=== PATIENT | female | born 1950 | race Caucasian/White ===

== ENCOUNTER → 2018-02-23 | Outpatient (CLI) | payer MEDICARE | END | disposition home or self-care (01) | LOC: EDSTATUS 14:00 → CFH 14:05 | PROVIDERS: ATTEND Family Medicine | DX: Z13.820 Encounter for screening for osteoporosis (principal); M81.0 Age-related osteoporosis without current pathological fracture; N95.9 Unspecified menopausal and perimenopausal disorder | CPT/HCPCS: 77080 ==

== ENCOUNTER 2019-07-27 19:46 | Observation (INO) | payer MEDICARE ==
[~2019-07-27] VITALS: Ht 149.9 cm; Wt 94.8 kg
--- NOTE | 2019-07-27 20:00 | NUR ---
THIS IS A 69 YO F BIB EMS W/ C/O NEAR SYNCOPAL EPISODE. PT WAS STANDING IN KITCHEN WHEN SHE BECAME DIZZY. PT FAMILY REPORTS "IT LOOKED LIKE SHE WAS GOING TO PASS OUT". PT DENIES LOC. PT C/O INTERMITTENT PRODUCTIVE COUGHX2 DAYS. STATES SHE RECENTLY FINISHED ABX COURSE FOR SINUS INFT. 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 A&OX4. PT PLACED ON 2L NC TO MAINTAIN >90%, DOES NOT WEAR O2 AT HOME. OTHER VS WDL. PT RESTING ON [employer] W/ CALL LIGHT IN REACH. CONNECTED TO ALL MONITORING.
[2019-07-27] MEDS ORDERED: RISP1TAB45 PO (20:04)
[2019-07-27] MEDS ORDERED: TRAZ-175 PO (20:04)
[2019-07-27] MEDS ORDERED: LOSA25TA25 PO (20:04)
[2019-07-27] MEDS ORDERED: HYDR25TA6 PO (20:04)
[2019-07-27] MEDS ORDERED: VENL150C6 PO (20:04)
--- NOTE | 2019-07-27 20:04 | NUR ---
ANDREA- WAS EXPLAINED VISITOR POLICY DUE TO CURRENT PANDEMIC. ALTHOUGH UPSET HE AGREED TO LEAVE WITH HIS DAUGHTER. HE CAN BE CONTACTED AT [phone].
--- NOTE | 2019-07-27 20:08 | NUR ---
PT TO CT.
[2019-07-27 20:48] LABS: BASOPHILS # (AUTO) 0.02 x10^3/uL (0-0.1); BASOPHILS % (AUTO) 0 % (0-1); EOSINOPHILS # (AUTO) 0.09 x10^3/uL (0-0.4); EOSINOPHILS % (AUTO) 1 % (1-7); LYMPHOCYTES # (AUTO) 0.78 x10^3/uL (1-3.4); LYMPHOCYTES % (AUTO) 10 % (22-44); MD NO; MEAN CORPUSCULAR HEMOGLOBIN 28.9 pg (27.0-34.8); MEAN CORPUSCULAR HGB CONC 32.2 g/dL (32.4-35.8); MEAN CORPUSCULAR VOLUME 89.9 fL (80-100); MEAN PLATELET VOLUME 8.2 fL (7.4-10.4); MONOCYTES # (AUTO) 0.31 x10^3/uL (0.2-0.8); MONOCYTES % (AUTO) 4 % (2-9); NEUTROPHILS # (AUTO) 6.73 x10^3/uL (1.8-6.8); NEUTROPHILS % (AUTO) 85 % (42-75); PLATELET COUNT 264 x10^3/uL (130-400); RED BLOOD COUNT 4.53 x10^6/uL (3.82-5.3); RED CELL DISTRIBUTION WIDTH 13.9 % (9.6-15.2)
[2019-07-27 20:53] LABS: ALANINE AMINOTRANSFERASE 17 U/L (12-78); ALBUMIN 3.2 g/dL (3.4-5.0); ANION GAP 4 mmol/L (5-15); CALCIUM 8.2 mg/dL (8.5-10.1); CHLORIDE 108 mmol/L (98-107); CREATININE 1.59 mg/dL (0.55-1.02)
[2019-07-27 20:57] LABS: ALKALINE PHOSPHATASE 70 U/L (45-117); BILIRUBIN,TOTAL < 0.1 mg/dL (0.2-1.0); TOTAL PROTEIN 6.2 g/dL (6.4-8.2); TROPONIN I < 0.015 ng/mL (0.000-0.045)
[2019-07-27] MEDS ORDERED: methylPREDNISolone SOD SUCC 125 MG/2 ML IVPush STA (21:37)
--- NOTE | 2019-07-27 22:09 | NUR ---
MED DEVIKA FROM PHARMACY.
[2019-07-27] MEDS ORDERED: ONDANSETRON ODT 4 MG PO PRN (22:30)
[2019-07-27] MEDS ORDERED: POLYETHYLENE GLYCOL 17 GM PACKET PO PRN (22:30)
[2019-07-27] MEDS ORDERED: BISACODYL 10 MG SUPP PR PRN (22:30)
--- NOTE | 2019-07-27 23:02 | NUR ---
REPORT GIVEN TO DIETER DEGROOT. PT IS READY FOR TRANSFER.
[2019-07-27] MEDS: SODIUM CHLORIDE 0.9% 1,000 ML IV SCH (23:37)
[2019-07-27] MEDS: HEPARIN 5,000 UNITS/ML, 1ML SQ SCH (23:46)
[2019-07-27 23:47] VITALS: BP 146/73
[2019-07-28] VITALS (7 sets, daily range): BP systolic 113–144; BP diastolic 65–90
[2019-07-28] MEDS ORDERED: BUPR300T94 PO
[2019-07-28] MEDS ORDERED: FLU VACC QS2019-20 36MOS UP/PF 0.5 ML IM-VACC ONE (00:30)
[2019-07-28] MEDS ORDERED: TRAZODONE 50MG TABLET ONE (00:55)
[2019-07-28] MEDS: TRAZODONE 100MG TABLET PO SCH ×2 (01:05→20:33)
[2019-07-28] MEDS: VENLAFAXINE 75 MG CAP ER PO SCH ×2 (01:06→20:33)
[2019-07-28 02:59] LABS: MICROSCOPIC NOT IND
[2019-07-28 03:04] LABS: CULTURE INDICATED? NO
[2019-07-28 05:01] LABS: BASOPHILS # (AUTO) 0.01 x10^3/uL (0-0.1); BASOPHILS % (AUTO) 0 % (0-1); EOSINOPHILS % (AUTO) 0 % (1-7); LYMPHOCYTES # (AUTO) 0.53 x10^3/uL (1-3.4); LYMPHOCYTES % (AUTO) 7 % (22-44); MD NO; MEAN CORPUSCULAR HEMOGLOBIN 29.2 pg (27.0-34.8); MEAN CORPUSCULAR HGB CONC 32.6 g/dL (32.4-35.8); MEAN CORPUSCULAR VOLUME 89.6 fL (80-100); MEAN PLATELET VOLUME 8.3 fL (7.4-10.4); MONOCYTES # (AUTO) 0.04 x10^3/uL (0.2-0.8); MONOCYTES % (AUTO) 1 % (2-9); NEUTROPHILS # (AUTO) 6.96 x10^3/uL (1.8-6.8); NEUTROPHILS % (AUTO) 92 % (42-75); PLATELET COUNT 263 x10^3/uL (130-400); RED BLOOD COUNT 4.59 x10^6/uL (3.82-5.3); RED CELL DISTRIBUTION WIDTH 13.8 % (9.6-15.2)
[2019-07-28 05:09] LABS: ANION GAP 3 mmol/L (5-15); CALCIUM 8.6 mg/dL (8.5-10.1); CHLORIDE 110 mmol/L (98-107); CHOLESTEROL, TOTAL 213 mg/dL (140-239); CREATININE 1.21 mg/dL (0.55-1.02)
[2019-07-28 05:14] LABS: CHOL/HDL RATIO 3.7; HDL CHOL % 27 % (28-40); HDL CHOLESTEROL (DIRECT) 58 mg/dL (40-60); LDL CHOLESTEROL,CALCULATED 146 mg/dL (54-169); LDL/HDL RATIO 2.5 (0.5-3.0); TRIGLYCERIDES 46 mg/dL (50-200); TROPONIN I < 0.015 ng/mL (0.000-0.045); VLDL CHOLESTEROL 9 mg/dL (0-25)
[2019-07-28] MEDS: SENNA/DOCUSATE TABLET PO SCH (08:21)
[2019-07-28] MEDS: HEPARIN 5,000 UNITS/ML, 1ML SQ SCH ×2 (08:21→17:09)
[2019-07-28] MEDS: ASPIRIN 81 MG TABLET CHEW PO SCH (08:21)
[2019-07-28] MEDS: HYDROCHLOROTHIAZIDE 12.5 MG CAPSULE PO SCH (08:21)
[2019-07-28] MEDS: LOSARTAN 25MG TABLET PO SCH (08:22)
[2019-07-28] MEDS ORDERED: VENLAFAXINE 75 MG CAP ER PO SCH (09:00)
[2019-07-28] MEDS: RISPERIDONE 1 MG TABLET PO SCH (10:04)
[2019-07-28] MEDS: SODIUM CHLORIDE 0.9% 1,000 ML IV SCH ×2 (10:04→20:33)
[2019-07-28] MEDS: BUPROPION SR 150 MG TABLET PO SCH ×2 (10:04→20:33)
[2019-07-28] MEDS: ACETAMINOPHEN 325 MG TABLET PO PRN ×3 (10:08→20:34)
[2019-07-28] MEDS ORDERED: TRAZODONE 100MG TABLET PO SCH (21:00)
[2019-07-28] MEDS: SUMATRIPTAN 25 MG TABLET PO PRN (23:02)
[2019-07-29 00:25] VITALS: BP 118/76
[2019-07-29] MEDS: HEPARIN 5,000 UNITS/ML, 1ML SQ SCH (06:09)
[2019-07-29] MEDS: SODIUM CHLORIDE 0.9% 1,000 ML IV SCH (06:09)
[2019-07-29 06:17] VITALS: BP 128/85
[2019-07-29] MEDS: SENNA/DOCUSATE TABLET PO SCH (08:50)
[2019-07-29] MEDS: ASPIRIN 81 MG TABLET CHEW PO SCH (08:51)
[2019-07-29] MEDS: RISPERIDONE 1 MG TABLET PO SCH (08:51)
[2019-07-29] MEDS: BUPROPION SR 150 MG TABLET PO SCH (08:51)
[2019-07-29] MEDS: HYDROCHLOROTHIAZIDE 12.5 MG CAPSULE PO SCH (08:51)
[2019-07-29] MEDS: LOSARTAN 25MG TABLET PO SCH (08:51)
[2019-07-29] MEDS ORDERED: LORazepam 1MG TABLET PO PRN (09:00)
[2019-07-29] MEDS ORDERED: ASPI-515 PO (11:37)
[2019-07-29] MEDS ORDERED: OMEG1CAP6 PO (11:41)
[2019-07-29] MEDS: SUMATRIPTAN 25 MG TABLET PO PRN (12:06)
== END 2019-07-29 13:29 | disposition home or self-care (01) ==
LOC: ED 21:09 → EDIP 21:41 → INTOOBSV 21:41 → ICU 23:16 → 4WST 07-28 22:41
PROVIDERS: ADMIT Family Medicine; ATTEND Family Medicine
DX: R55 Syncope and collapse (principal); G93.40 Encephalopathy, unspecified; G45.9 Transient cerebral ischemic attack, unspecified; I10 Essential (primary) hypertension; E86.1 Hypovolemia; J44.1 Chronic obstructive pulmonary disease with (acute) exacerbation; F32.9 Major depressive disorder, single episode, unspecified; N28.9 Disorder of kidney and ureter, unspecified; I95.89 Other hypotension; I63.9 Cerebral infarction, unspecified; R09.02 Hypoxemia; Z88.4 Allergy status to anesthetic agent; Z90.710 Acquired absence of both cervix and uterus; Z20.828 Contact with and (suspected) exposure to other viral communicable diseases; Z79.82 Long term (current) use of aspirin; Z79.899 Other long term (current) drug therapy
CPT/HCPCS: 36415; 70450; 70551; 71045; 74174; 80048; 80053; 80061; 81003; 83605; 83880; 84145; 84443; 84484; 85025; 87040; 87081; 93005; 93306; 93880; 96361; 96372; 96374; 99285; G0378; J1644; J2930; J7030

== ENCOUNTER → 2019-11-29 | Outpatient (CLI) | payer MEDICARE ==
[~2019-11-29] MED LIST: ASPI-515 PO; BUPR300T94 PO; HYDR25TA6 PO; LOSA25TA25 PO; OMEG1CAP6 PO; RISP1TAB45 PO; TRAZ-175 PO; VENL150C6 PO
== END | disposition home or self-care (01) ==
LOC: CFH 11:27
PROVIDERS: ATTEND Nurse Practitioner Family
DX: Z12.31 Encounter for screening mammogram for malignant neoplasm of breast (principal)
CPT/HCPCS: 77067